=== PATIENT | female | born 1940 | race Caucasian/White ===

== ENCOUNTER → 2019-02-25 | Outpatient (CLI) | payer MEDICARE, OTHER ==
[~2019-02-25] MED LIST: AMLO5; ASPI81CH; BUPR150T2 PO; CALCAVITDA PO; Cyclobenzaprine5 MG; FLUO10; LEVSOD25 PO; LISI20; LISI5 PO; NAPR220
== END | disposition home or self-care (01) ==
LOC: LAB SHORT 18:13 → LAB 18:13
DX: R30.0 Dysuria (principal)
CPT/HCPCS: 87086

== ENCOUNTER → 2019-09-30 | Outpatient (CLI) | payer MEDICARE, OTHER | END | disposition home or self-care (01) | LOC: LAB 10:55 → LAB SHORT 10:55 | DX: R82.79 Other abnormal findings on microbiological examination of urine (principal) | CPT/HCPCS: 87077; 87086; 87186 ==

== ENCOUNTER → 2019-10-02 | Outpatient (CLI) | payer MEDICARE, OTHER | END | disposition home or self-care (01) | LOC: LAB 09:55 → LAB SHORT 09:55 | DX: R30.0 Dysuria (principal) | CPT/HCPCS: 87086 ==

== ENCOUNTER → 2021-01-03 | Outpatient (CLI) | payer MEDICARE, OTHER | END | disposition home or self-care (01) | LOC: LAB SHORT 08:21 → LAB 08:21 | DX: D48.5 Neoplasm of uncertain behavior of skin (principal) | CPT/HCPCS: 88305 ==

== ENCOUNTER → 2021-01-11 | Outpatient (CLI) | payer MEDICARE, OTHER | LOC: LAB 11:28 → LAB SHORT 11:28 | DX: D48.5 Neoplasm of uncertain behavior of skin (principal) | CPT/HCPCS: 88305 ==

== ENCOUNTER 2022-04-02 09:10 | Day surgery (SDC) | payer MEDICARE, OTHER ==
[~2022-04-02] VITALS: Ht 172.7 cm; Wt 70.3 kg
[2022-04-02] MEDS ORDERED: LISI10 PO (09:25)
[2022-04-02] MEDS ORDERED: Ibuprofen Ib100 MG PO (09:26)
[2022-04-02] MEDS ORDERED: ESCI10 PO (09:26)
[2022-04-02] MEDS ORDERED: IBUP600 PO (09:26)
--- NOTE | 2022-04-02 09:34 | NUR ---
04/02/22 0934 Vernon Bustos CALL LIGHT WITHIN REACH. TETRACAINE AT 0930 IN LEFT EYE AND PLEDGETT AT 0931
== END 2022-04-02 11:16 | disposition home or self-care (01) ==
LOC: ORSCSDS 09:10
PROVIDERS: Student in an Organized Health Care Education/Training Program
PROC: 08RK3JZ Replacement of Left Lens with Synthetic Substitute, Percutaneous Approach (ICD-10-PCS; principal; 2022-04-02 10:30)
DX: H25.12 Age-related nuclear cataract, left eye (principal); I10 Essential (primary) hypertension; E03.9 Hypothyroidism, unspecified; F32.A Depression, unspecified; Z79.899 Other long term (current) drug therapy
CPT/HCPCS: J2001; J2250; J7040; V2632

== ENCOUNTER → 2023-11-05 | Outpatient (CLI) | payer MEDICARE, OTHER ==
[~2023-11-05] MED LIST changes: +ESCI10 PO; +IBUP600 PO; +Ibuprofen Ib100 MG PO; +LISI10 PO
== END ==
LOC: LAB 10:29 → LAB SHORT 10:29
DX: R10.9 Unspecified abdominal pain (principal)
CPT/HCPCS: 87086

== ENCOUNTER → 2024-05-27 | Outpatient (CLI) | payer MEDICARE, OTHER | LOC: LAB SHORT 15:52 → LAB 15:52 | DX: N39.0 Urinary tract infection, site not specified (principal) | CPT/HCPCS: 87086 ==

== ENCOUNTER → 2024-06-21 | Outpatient (CLI) | payer MEDICARE, OTHER | END | disposition home or self-care (01) | LOC: PLD 15:23 → LAB SHORT 15:23 | DX: D23.9 Other benign neoplasm of skin, unspecified (principal); D48.5 Neoplasm of uncertain behavior of skin | CPT/HCPCS: 88305 ==

== ENCOUNTER → 2024-07-06 | Outpatient (CLI) | payer MEDICARE, OTHER | LOC: LAB 10:54 → LAB SHORT 10:54 | DX: R30.0 Dysuria (principal) | CPT/HCPCS: 87086 ==

== ENCOUNTER → 2024-07-17 | Outpatient (CLI) | payer MEDICARE, OTHER | LOC: LAB SHORT 10:05 → LAB 10:05 | DX: R30.0 Dysuria (principal); R35.0 Frequency of micturition | CPT/HCPCS: 87086 ==